=== PATIENT | female | born 1955 | race Caucasian/White ===

== ENCOUNTER 2024-03-20 14:41 | Emergency (ER) | payer MEDICARE, BC, SELFPAY ==
[2024-03-20] VITALS (10 sets, daily range): BP systolic 149–189; BP diastolic 88–102; PULSE 63–67; RESP 14–16; TEMP 36.8; O2SAT 94–100; BMI 21.9
--- NOTE | 2024-03-20 15:12 | CT_ITS ---
Patient: TYREE TERRY Facility:?[facility] Patient ID:?[id number] Site Patient ID:?[id number] Site :?[id number] Study:?CT-Chest W/ 95CC ISOVUE-370 PE PROTOCOL-03/20/2024 4:07:14 PM Ordering Physician:Andrew William Final Report: INDICATION: Chest pain. History of polycythemia. COMPARISON: None available. TECHNIQUE: CT pulmonary angiography with 95 cc of Isovue 370 intravenous contrast. Please note that all CT scans at this facility use dose modulation, iterative reconstruction, and/or weight-based dosing when appropriate to reduce radiation dose to as low as reasonably achievable. FINDINGS: Pulmonary Arterial Vasculature: Opacification of the pulmonary arterial tree is adequate. No intraluminal pulmonary arterial filling defect is identified to indicate a pulmonary embolism. Visualized Lower Neck: No lower cervical adenopathy. Mediastinum: Thoracic aorta and pulmonary trunk are normal in caliber. Heart and pericardium are without significant findings. Trachea and esophagus are normal in appearance. There is no mediastinal lymphadenopathy. Lungs and Pleura: No significant pulmonary findings. No significant pleural effusion. No pneumothorax. Skeleton: No significant osseous findings. Thoracic soft tissues: Unremarkable. No axillary adenopathy. Visualized Upper Abdomen: No significant findings. IMPRESSION: No evidence of pulmonary embolism or other acute cardiopulmonary process. No significant incidental findings. Please note that all CT scans at this facility use dose modulation, iterative reconstruction, and/or weight-based dosing when appropriate to reduce radiation dose to as low as reasonably achievable. Dictated by Daniel Up MD @ 03/20/2024 4:22:29 PM Signed by:?Daniel Up MD @03/20/2024 4:22:29 PM (Electronic Signature)
--- NOTE | 2024-03-20 15:15 | ED_ITS ---
HPI - General Adult General Chief complaint: Chest Pain Stated complaint: chest pain Time Seen by Provider: 03/20/24 14:44 History of Present Illness HPI narrative: Patient is a 68 year white female with polycythemia vera who is on Xarelto, and woke up this morning with some chest tightness a this seemed to get worse after she went to a evaluation for cognition, when she was out golfing she would do some swimming on the 4th hole and felt some chest tightness in her left chest and in her left anterior chest. It was worse with a deep breath. She has had no leg swelling or edema. They recently came back from [place] [employer]. She had blood testing done down there but none recently here. . Patient at this point Still's still feels a little bit of discomfort 60 breath but at rest is comfortable. She has not had any known heart disease. She is on hydroxyurea for her polycythemia . she also has started taking done as a pill. Her reports that the evaluation today was somewhat stressful for her. Patient also has osteoporosis and elevated cholesterol and takes a statin. Related Data Home Medications Medication Instructions Recorded Confirmed alendronate 70 mg tablet 70 mg PO 03/20/24 donepezil 5 mg tablet 5 mg PO DAILY 03/20/24 03/20/24 hydroxyurea 500 mg capsule PO 03/20/24 rivaroxaban 15 mg tablet (Xarelto) 15 mg PO DAILY 03/20/24 03/20/24 rosuvastatin 5 mg tablet 5 mg PO DAILY 03/20/24 03/20/24 Allergies Allergy/AdvReac Type Severity Reaction Status Date / Time No Known Drug Allergies Allergy Verified 03/20/24 14:53 Review of Systems Status of ROS: Reports: 6 or more systems reviewed and unremarkable except as noted in History and below [facility] Social History Smoking Status: Never smoker Do you use any of these nicotine containing products: None Second hand tobacco smoke exposure: No How often do you have a drink containing alcohol: 2-3 times a week How many standard drinks containing alcohol do you have on a typical day: 1 or 2 How often do you have six or more drinks on one occasion: Never AUDIT-C Alcohol total score: 3 Non-prescribed substance use: denies use Non-prescribed substance use details: otc sleep aids. marijuana gummies service: No Exam Narrative: Exam Narrative: Objective: Vital signs are elevated blood pressure, afebrile, O2 sat 100% on room air In general patient is no apparent distress she is alert orient x3 no facial asymmetry noted no scleral icterus Neck is supple Chest is clear no rales or wheezing Heart rhythm without murmur Chest wall does have some tenderness along the left parasternal border that is consistent with the symptoms she has had. This is palpable and reproducible Abdomen benign Extremities are no edema neurologic nonfocal, good peripheral perfusion noted bilaterally in all extremities Const: Vital Signs, click to edit/add: Vital Signs - 24 hr 03/20/24 14:50 03/20/24 15:05 03/20/24 15:06 Temperature 98.2 F Pulse Rate 64 65 Pulse Rate [Pulse Oximeter] 67 Respiratory Rate 16 Blood Pressure 166/102 H Blood Pressure [Ri ght Upper Arm] 189/98 H Pulse Oximetry 100 100 100 Oxygen Delivery Me thod Room Air 03/20/24 15:12 03/20/24 15:15 03/20/24 15:30 Temperature Pulse Rate 64 63 Pulse Rate [Pulse Oximeter] Respiratory Rate Blood Pressure Blood Pressure [Ri ght Upper Arm] Pulse Oximetry 98 99 95 Oxygen Delivery Me thod 03/20/24 15:32 03/20/24 15:45 03/20/24 16:06 Temperature Pulse Rate 63 64 63 Pulse Rate [Pulse Oximeter] Respiratory Rate Blood Pressure 149/96 H Blood Pressure [Ri ght Upper Arm] Pulse Oximetry 98 94 97 Oxygen Delivery Me thod 03/20/24 16:30 Temperature Pulse Rate Pulse Rate [Pulse Oximeter] 66 Respiratory Rate 14 Blood Pressure Blood Pressure [Ri ght Upper Arm] 153/88 H Pulse Oximetry 99 Oxygen Delivery Me thod Room Air Course Vital Signs Vital signs: Initial Vital Signs Temperature 98.2 F 03/20/24 14:50 Temperature Source Temporal Artery Scan 03/20/24 14:50 Pulse Rate 67 03/20/24 14:50 Respiratory Rate 16 03/20/24 14:50 Blood Pressure 189/98 H 03/20/24 14:50 Blood Pressure Mean 128 H 03/20/24 14:50 Blood Pressure Position Sitting 03/20/24 14:50 Pulse Oximetry 100 03/20/24 14:50 Oxygen Delivery Method Room Air 03/20/24 14:50 Vital Signs Temperature 98.2 F 03/20/24 14:50 Pulse Rate 67 03/20/24 14:50 Respiratory Rate 16 03/20/24 14:50 Blood Pressure 189/98 H 03/20/24 14:50 Pulse Oximetry 100 03/20/24 14:50 Oxygen Delivery Method Room Air 03/20/24 14:50 Temperature 98.2 F 03/20/24 14:50 Pulse Rate 66 03/20/24 16:30 Respiratory Rate 14 03/20/24 16:30 Blood Pressure 153/88 H 03/20/24 16:30 Pulse Oximetry 99 03/20/24 16:30 Oxygen Delivery Method Room Air 03/20/24 16:30 Medications Administered Medications: Discontinued Medications Generic Name Dose Route Start Last Admin Trade Name Freq PRN Reason Stop Dose Admin Aspirin 324 mg 03/20/24 15:12 03/20/24 15:29 Aspirin 81 Mg Tab.Chew PO 03/20/24 15:13 324 mg ONCE ONE Administration Sodium Chloride 500 mls @ 500 mls/hr 03/20/24 15:12 03/20/24 16:15 0.9 % Sodium Chloride 500 Ml IV 03/20/24 16:11 Infused .Q1H ONE Infusion Medical Decision Making MDM Narrative Medical decision making narrative: 68-year-old female with polycythemia vera with chest tightness today, pleuritic in nature, worse with golfing today. Recent reproducible with palpation and with deep breathing. Patient did have a stressful day with evaluation for cognitive status. I think at this point however given her polycythemia be appropriate to get a CT scan of her chest to rule out pulmonary embolus or other intrathoracic pathology, would also get serial troponins, keep her on a quality assurance monitor chassis oximeter, get serial EKG. Laboratory studies. Aspirin will be given 324 chewable. Disposition pending findings above. Addendum 4:27 p.m.: The patient's CT scan of the chest shows no evidence of PE or other abnormality. Laboratory studies show normal white count hemoglobin, normal INR and PTT, ER profile is unremarkable, liver function tests are normal, CRP is negative, point of care troponin is 0. Patient will get a 2nd troponin and EKG in disposition pending findings. Should this could be chest wall inflammation at this point seems less likely coronary artery disease, PE ruled out. Addendum 5:23 p.m. the patient's 2nd troponin is 0, EKG was repeated and was within normal limits. At this point I think we can allow her to go home she is asymptomatic at present and she may certainly have some mild chest wall inflammation she can take some Advil or Tylenol would be reasonable and follow- up with regular doctor next few days for reassessment. Her blood pressure is better I think a couple of doses Advil would be reasonable even though she is on novel anticoagulant. She will come back if there is questions or concerns she and her comfortable plan thank you Lab Data Labs: Lab Results 03/20/24 03/20/24 03/20/24 Range/Units 15:00 15:13 16:55 WBC 6.21 (4.50-11.00) K/uL RBC 3.88 L (4.00-5.20) m/uL Hgb 14.4 (12.0-16.0) gm/dL Hct 42.9 (33.0-51.0) % MCV 111 H (80-100) fL MCH 37 H (26-34) pg MCHC 34 (32-36) gm/dL RDW Coeff of Jorge A 15.7 H (11.5-15.5) % Plt Count 212 (140-440) K/uL Neut % (Auto) 67.1 (42.0-72.0) % Lymph % (Auto) 23.7 (20-44) % [place] % (Auto) 7.6 (0.0-11.0) % Eos % (Auto) 0.8 (0.0-7.0) % Baso % (Auto) 0.6 (0.0-3.0) % Neut # (Auto) 4.17 (1.7-7.0) K/uL Lymph # (Auto) 1.47 (0.90-2.90) K/uL [place] # (Auto) 0.50 (0.00-0.90) K/UL Eos # (Auto) 0.05 (0.00-0.50) K/uL Baso # (Auto) 0.04 (0.00-0.30) K/uL Abs Immat Gran (auto) 0.01 (0.00-0.30) K/uL Imm/Tot Granulo (auto) 0.2 % INR 1.03 (0.91-1.10) APTT 31 (23-33) Seconds Sodium 138 (135-149) mmol/L Potassium 3.8 (3.6-5.1) mmol/L Chloride 103 (96-114) mmol/L Carbon Dioxide 29 (20-32) mmol/L Anion Gap 6 L (7-15) mEq/L BUN 18 (7-30) mg/dL Creatinine 0.7 (0.5-1.5) mg/dL Estimated Creat Clear 53.81 Estimated GFR 95 ml/min Glucose 89 (60-115) mg/dL Calcium 9.2 (8.4-10.6) mg/dL Total Bilirubin 0.5 (0.1-1.5) mg/dL Direct Bilirubin 0.0 (0.0-0.5) mg/dL AST 29 (12-35) U/L ALT 18 (4-35) U/L Alkaline Phosphatase 59 (40-150) U/L C-Reactive Protein < 0.5 L (0.5-1.0) mg/dL NT-Pro-B Natriuret Pep 218 pg/mL Total Protein 7.6 (6.0-8.3) g/dL Albumin 4.5 (3.3-5.0) g/dL POC Troponin I 0.00 L 0.00 L (0.01-0.04) ng/ml Discharge Plan Discharge Clinical Impression: Chest pain Patient Disposition: Home w/ Parent or Adult Condition: Improved Additional Instructions: Tylenol or Advil for the next couple of days, light activity, fluids, rest, return if problems or concerns. Follow up with regular doctor next few days. Activity Level: Light activity Discharge Diet: Regular Prescriptions: No Action hydroxyurea 500 mg capsule PO donepezil 5 mg tablet 5 mg PO DAILY alendronate 70 mg tablet 70 mg PO rosuvastatin 5 mg tablet 5 mg PO DAILY Xarelto 15 mg tablet 15 mg PO DAILY Follow Up/Referrals: Mel Shah MD [Primary Care Provider] - Stand Alone Forms: [email or web address] Info Instructions
[2024-03-20 15:28] LABS: Basophils Absolute Auto 0.04 K/uL (0.00-0.30); Basophils Percent Auto 0.6 % (0.0-3.0); Eosinophils Absolute Auto 0.05 K/uL (0.00-0.50); Eosinophils Percent Auto 0.8 % (0.0-7.0); Hematocrit 42.9 % (33.0-51.0); Hemoglobin* 14.4 gm/dL (12.0-16.0); Immature Granulocytes Abs Auto 0.01 K/uL (0.00-0.30); Immature Granulocytes Pct Auto 0.2 %; Lymphocytes Absolute Auto 1.47 K/uL (0.90-2.90); Lymphocytes Percent Auto 23.7 % (20-44); Mean Corpuscular HGB Conc 34 gm/dL (32-36); Mean Corpuscular Hemoglobin 37 pg (26-34); Mean Corpuscular Volume 111 fL (80-100); Monocytes Percent Auto 7.6 % (0.0-11.0); Neutrophils Absolute Auto 4.17 K/uL (1.7-7.0); Neutrophils Percent Auto 67.1 % (42.0-72.0); Platelet Count* 212 K/uL (140-440); RDW Coefficient of Variation % 15.7 % (11.5-15.5); Red Blood Count 3.88 m/uL (4.00-5.20); White Blood Count* 6.21 K/uL (4.50-11.00)
[2024-03-20] MEDS: 0.9 % SODIUM CHLORIDE 500 ML 500 ML IV (15:28)
[2024-03-20] MEDS: ASPIRIN 81 MG TAB.CHEW 324 MG PO (15:29)
[2024-03-20 15:35] LABS: Slide Review Reflex No
[2024-03-20 15:38] LABS: Albumin* 4.5 g/dL (3.3-5.0); Chloride* 103 mmol/L (96-114)
[2024-03-20 15:39] LABS: Potassium* 3.8 mmol/L (3.6-5.1); Sodium* 138 mmol/L (135-149)
[2024-03-20 15:40] LABS: INR 1.03 (0.91-1.10); Prothrombin Time 14.2 Seconds
[2024-03-20 15:41] LABS: Creatinine* 0.7 mg/dL (0.5-1.5); Est. Creatinine Clearance* 53.81; Estimated Glomerular Filt Rate 95 ml/min; Partial Thromboplastin Time* 31 Seconds (23-33)
[2024-03-20 15:42] LABS: Alanine Aminotransferase* 18 U/L (4-35); Alkaline Phosphatase* 59 U/L (40-150); Anion Gap 6 mEq/L (7-15); Aspartate Amino Transferase* 29 U/L (12-35); Bilirubin Total* 0.5 mg/dL (0.1-1.5); Blood Urea Nitrogen* 18 mg/dL (7-30); Calcium* 9.2 mg/dL (8.4-10.6); Carbon Dioxide* 29 mmol/L (20-32); Glucose* 89 mg/dL (60-115); Total Protein* 7.6 g/dL (6.0-8.3)
[2024-03-20 15:51] LABS: C Reactive Protein* < 0.5 mg/dL (0.5-1.0); NT Pro B Type NatriureticPept* 218 pg/mL
== END 2024-03-20 17:40 | disposition home or self-care (01) ==
PROVIDERS: Emergency Provider Family Medicine; PCP Family Medicine
DX: R07.9 Chest pain, unspecified (principal)
CPT/HCPCS: 36415; 71275; 80048; 80076; 83880; 84484; 85025; 85610; 85730; 86140; 93005; 94761; 99284; 99285; A9270; J7030; Q9967